=== PATIENT | female | born 1975 | race Caucasian/White ===

== ENCOUNTER 2022-09-11 08:27 | Emergency (ER) | payer OTHER, BC ==
[2022-09-11] MEDS ORDERED: HYDROcodone/Acetaminophen 5/325 mg Tablet ONE (10:40)
[2022-09-11] MEDS ORDERED: Ketorolac Tromethamine 30 MG/ML VIAL ONE (10:40)
== END 2022-09-11 11:10 | disposition home or self-care (01) ==
LOC: CSHERS 08:27
DX: S42.391A Other fracture of shaft of right humerus, initial encounter for closed fracture (principal); W01.0XXA Fall on same level from slipping, tripping and stumbling without subsequent striking against object, initial encounter
CPT/HCPCS: 96372; J1885